=== PATIENT | male | born 1965 | race Caucasian/White ===

== ENCOUNTER → 2017-08-27 | Outpatient (CLI) | payer OTHER ==
[2017-08-27 09:02] LABS: ALT 62 U/L (21-72); AST 47 U/L (17-59); Albumin 4.2 g/dL (3.5-5.0); Alkaline Phosphatase 83 U/L (38-126); Anion Gap 9 mmol/L; Blood Urea Nitrogen 19 mg/dL (9-20); Calcium 10.1 mg/dL (8.4-10.2); Carbon Dioxide 25 mmol/L (22-30); Chloride 110 mmol/L (98-107); Cholesterol 176 mg/dL (<200); Glucose 76 mg/dL (74-99); HDL Cholesterol 31 mg/dL (40-60); LDL Cholesterol,Calculated 107 mg/dL (0-99); Potassium 4.7 mmol/L (3.5-5.1); Sodium 144 mmol/L (137-145); Total Bilirubin 0.4 mg/dL (0.2-1.3); Total Protein 6.8 g/dL (6.3-8.2); Triglycerides 192 mg/dL (<150)
[2017-08-27 18:49] LABS: Hemoglobin A1C 8.6 % (4.0-6.0)
== END | disposition home or self-care (01) ==
LOC: LABWHC1 08:16
PROVIDERS: ATTEND Internal Medicine Endocrinology, Diabetes & Metabolism
DX: E11.65 Type 2 diabetes mellitus with hyperglycemia (principal)
CPT/HCPCS: 36415; 80053; 80061; 82043; 82570; 83036

== ENCOUNTER → 2018-02-14 | Outpatient (CLI) | payer BC ==
[2018-02-14 09:03] LABS: HCT 50.3 % (39.0-53.0); HGB 16.2 gm/dL (13.0-17.5); MCH 27.6 pg (25.0-35.0); MCHC 32.1 g/dL (31.0-37.0); MCV 85.9 fL (80.0-100.0); Mean Platelet Volume 7.6; Platelet Count 260 k/uL (150-450); RBC 5.86 m/uL (4.30-5.90); RDW 15.1 % (11.5-15.5)
[2018-02-14 09:21] LABS: Anion Gap 9 mmol/L; Blood Urea Nitrogen 12 mg/dL (9-20); Carbon Dioxide 25 mmol/L (22-30); Chloride 105 mmol/L (98-107); Potassium 4.5 mmol/L (3.5-5.1); Sodium 139 mmol/L (137-145)
== END | disposition home or self-care (01) ==
LOC: LABPAT 07:48
PROVIDERS: ATTEND Internal Medicine Interventional Cardiology
DX: Z01.812 Encounter for preprocedural laboratory examination (principal); I70.213 Atherosclerosis of native arteries of extremities with intermittent claudication, bilateral legs; E78.1 Pure hyperglyceridemia
CPT/HCPCS: 36415; 80051; 82565; 84520; 85027

== ENCOUNTER 2018-02-28 09:48 | Day surgery (SDC) | payer BC, OTHER ==
[2018-02-26 11:57] VITALS: BMI 45.3
[~2018-02-28 09:48] MED LIST: ALPRAZolam 0.25 MG TAB PO PRN; ASPIRIN 325 MG TAB PO STA; SODIUM CHLORIDE 0.9% 1,000 ML in EMPTY BAG 1 BAG IV ONE
[2018-02-28 10:23] LABS: Glucose,Whole Blood 201 mg/dL (75-99)
[2018-02-28] MEDS ORDERED: INSULIN ASPART 100 UNIT/ML 1 ML 10 ML VIAL SQ ONE (10:34)
[2018-02-28] MEDS ORDERED: MIDAZOLAM 2 MG/2 ML VIAL IV ONE (14:09)
[2018-02-28] MEDS ORDERED: SODIUM CHLORIDE 0.9% 1,000 ML IV ONE (14:10)
[2018-02-28] MEDS ORDERED: LIDOCAINE 1% INJ 10MG/ML (20 ML MDV) SQ ONE (14:15)
[2018-02-28] MEDS ORDERED: SODIUM CHLORIDE 0.9% 1,000 ML IV SCH (14:45)
[2018-02-28 15:19] VITALS: RESP 18; TEMP 97.6
[2018-02-28 16:23] LABS: Glucose,Whole Blood 202 mg/dL (75-99)
[2018-02-28 18:03] VITALS: BP 175/77; PULSE 104
--- NOTE | 2018-02-28 18:54 | AN ---
ANGIOGRAPHY REPORT DATE OF SERVICE: 02/28/2018 PERFORMING PHYSICIAN: Ruslan Ferguson MD, confectionery maker. PROCEDURE PERFORMED: 1. Abdominal aortogram. 2. Bilateral lower extremity runoff. INDICATION: This is a pleasant 52-year-old gentleman with known history of peripheral arterial disease who underwent in the past successful stenting of the left common iliac artery and left external iliac artery. He was experiencing bilateral lower extremity intermittent claudication. He was brought today to undergo a peripheral angiogram. APPROACH: Right common femoral artery. COMPLICATIONS: None. LEVEL OF SEDATION: Moderate, with sedation length of 17 minutes. PROCEDURE DESCRIPTION: After obtaining informed consent, the patient was brought to the cardiac labor relations director. The right common femoral artery was cannulated using micropuncture technique. The micropuncture wire passed easily. Then I placed a 4-Kazakh sheath in the right common femoral artery. After that I did an abdominal aortogram and bilateral lower extremity runoff using 4-Kazakh pigtail catheter which was initially placed at the level of the renal arteries. Then it was pulled into above the bifurcation of the aorta to right and left common iliac arteries. The procedure was completed without any complication. SELECTIVE PERIPHERAL ANGIOGRAM: 1. The aorta appeared to be normal. 2. Common iliac arteries. The right and left common iliac arteries appeared to be patent. 3. External iliac arteries. The right and left external are patent. 4. The internal iliac arteries. The right internal iliac artery is patent and the left internal iliac artery was not well opacified. 5. Common femoral arteries. The right and left common femoral arteries are normal. 6. Profundae. The right and left profundae are patent. 7. SFA. The right and left SFAs are patent. 8. Popliteals. The right and left popliteals are normal. 9. Below the knee. There is 3-vessel runoff below the knee bilaterally which reach all the way to the feet. CONCLUSION: Patent stent in the left common iliac artery and left external iliac artery. POST-PROCEDURE MANAGEMENT: Medical treatment. MMODL / IJN: [id number] /
--- NOTE | 2018-02-28 18:54 | LTR ---
February 28, 2018 To: Dr. Radha Nagel Re: Ramos Andersen ([id number]) Dear Dr. Nagel, Mr. Ramos Andersen underwent today peripheral angiogram and that revealed patent stent in the left common iliac artery and left external iliac artery. Thank you for allowing us to participate in his care. Please do not hesitate to call if you have any question or concern. Sincerely, Ruslan Ferguson MD MMAMANDAL / TYRONEN: [id number] /
--- NOTE | 2018-03-01 09:53 | IR ---
Fluoroscopy HISTORY: Peripheral vascular disease 3.2 minutes fluoroscopy time supplied to the referring clinician. 131 intraoperative C-arm images do cument the procedure. See dictated report from cardiology.
== END 2018-02-28 19:56 | disposition home or self-care (01) ==
LOC: CATHCVL 09:48 → 1SOBS 14:44 → CATHCVL 19:56
PROVIDERS: ATTEND Internal Medicine Interventional Cardiology
DX: I70.213 Atherosclerosis of native arteries of extremities with intermittent claudication, bilateral legs (principal); E11.51 Type 2 diabetes mellitus with diabetic peripheral angiopathy without gangrene; Z95.820 Peripheral vascular angioplasty status with implants and grafts; E78.5 Hyperlipidemia, unspecified; E78.1 Pure hyperglyceridemia; E66.01 Morbid (severe) obesity due to excess calories; Z68.42 Body mass index [BMI] 45.0-49.9, adult; I25.10 Atherosclerotic heart disease of native coronary artery without angina pectoris; Z79.02 Long term (current) use of antithrombotics/antiplatelets; Z79.82 Long term (current) use of aspirin; Z79.4 Long term (current) use of insulin; Z79.899 Other long term (current) drug therapy; Z87.891 Personal history of nicotine dependence
CPT/HCPCS: 36200; 75625; 75716; C1769 ×4; C1894; J2250; J2001

== ENCOUNTER → 2018-04-16 | Outpatient (CLI) | payer BC ==
[2018-04-16 18:03] LABS: Albumin 4.2 g/dL (3.80-4.90); Albumin/Globulin Ratio 1.68 (1.60-3.17); Anion Gap 9.8 mmol/L (4.00-12.00); Calcium 9.2 mg/dL (8.7-10.3); Carbon Dioxide 23.2 mmol/L (21.6-31.8); Globulin 2.5 g/dL (1.6-3.3); LDL Cholesterol,Calculated 59.4 mg/dL (0.0-131.0); Potassium 4.6 mmol/L (3.5-5.5); Total Bilirubin 0.6 mg/dL (0.3-1.2); Total Protein 6.7 g/dL (6.2-8.2); VLDL Calculation 31.6 mg/dL (5.00-40.00)
[2018-04-16 20:26] LABS: Hemoglobin A1C 11.7 % (4.0-6.0)
== END ==
LOC: LABWHC1 08:14
PROVIDERS: ATTEND Internal Medicine Endocrinology, Diabetes & Metabolism
DX: E11.65 Type 2 diabetes mellitus with hyperglycemia (principal)
CPT/HCPCS: 36415; 80053; 80061; 82043; 82570; 83036; 84443

== ENCOUNTER → 2018-12-24 | Outpatient (CLI) | payer BC ==
--- NOTE | 2018-12-24 10:16 | US ---
EXAMINATION TYPE: US venous doppler duplex LE DATE OF EXAM: 12/24/2018 9:11 AM COMPARISON: NONE CLINICAL HISTORY: E11.622 Type 2 diabetes mellitus with other skin. Non-healing wounds bilateral lowe r legs LOWER EXTREMITY VENOUS INSUFFICIENCY SIDE PERFORMED: Bilateral 1) Color flow is present and patency is documented in the following vessels. No DVT or SVT is noted . EIV Common Femoral Vein Deep Femoral Vein Femoral Vein Popliteal Vein Proximal Calf Veins Greater Saph Vein Upper Small Saph Vein 2) There is venous reflux noted at the following venous levels: Right: CFV, Mid fem vein, distal fem vein, proximal and distal popliteal vein, and small saph vein Left: CFV, proximal fem vein, mid fem vein IMPRESSION: 1. No sonographic evidence of deep venous thrombosis nor superficial venous thrombosis within either the bilateral lower chimney. 2. Venous reflux is noted at the above detailed levels bilaterally.
--- NOTE | 2018-12-25 13:58 | P.ARTDOP ---
Arterial Doppler LOWER EXTREMITY ARTERIAL DOPPLER: DATE OF SERVICE: 12/24/2018 Reason for study: Bilateral leg ulcers. Doppler waveforms: Multiphasic bilaterally throughout. Pulse volume recording: None. Pressure gradients: None. Ankle-brachial indices: Greater than 1 bilaterally. Toe pressures: 99 on the right, 98 on the left Impression: Normal study.
== END | disposition home or self-care (01) ==
LOC: RADUSWWP 08:32
PROVIDERS: ATTEND Family Medicine
DX: R60.0 Localized edema (principal); I87.2 Venous insufficiency (chronic) (peripheral); I73.89 Other specified peripheral vascular diseases; E11.622 Type 2 diabetes mellitus with other skin ulcer; E11.65 Type 2 diabetes mellitus with hyperglycemia; Z95.820 Peripheral vascular angioplasty status with implants and grafts
CPT/HCPCS: 93922; 93970

== ENCOUNTER → 2019-10-31 | Outpatient (CLI) | payer BC ==
[2019-10-31 16:18] LABS: Hemoglobin A1C 9.4 % (4.0-6.0)
[2019-10-31 16:34] LABS: African American GFR (CKD) 118.2 (60.0-200.0); Albumin 4.3 g/dL (3.80-4.90); Albumin/Globulin Ratio 2.39 (1.60-3.17); Anion Gap 9.6 mmol/L (4.00-12.00); BUN/Creat Ratio 17.5 Ratio (12.00-20.00); Carbon Dioxide 23.4 mmol/L (21.6-31.8); Chol/HDL Ratio 5.68; Globulin 1.8 g/dL (1.6-3.3); LDL Cholesterol,Calculated 113.8 mg/dL (0.0-131.0); Potassium 3.8 mmol/L (3.5-5.5); Total Bilirubin 0.5 mg/dL (0.2-1.2); Total Protein 6.1 g/dL (6.2-8.2); VLDL Calculation 31.2 mg/dL (5.00-40.00)
[2019-10-31 17:56] LABS: Urine Creatinine 130.2 mg/dL
== END | disposition home or self-care (01) ==
LOC: LABWHC1 08:47
PROVIDERS: ATTEND Internal Medicine Endocrinology, Diabetes & Metabolism
DX: E11.65 Type 2 diabetes mellitus with hyperglycemia (principal)
CPT/HCPCS: 36415; 80053; 80061; 82043; 82570; 83036; 84443

== ENCOUNTER → 2020-04-20 | Outpatient (CLI) | payer BC ==
--- NOTE | 2020-04-20 09:55 | XR ---
EXAM TYPE: LUMBAR SPINE X RAY SERIES COMPARISON: NONE HISTORY: Pain TECHNIQUE: 4 views are submitted. FINDINGS: Alignment is anatomic. The pedicles are intact. The transverse processes are intact. There is no s pondylolysis or spondylolisthesis. Hypertrophic and degenerative change spine. The SI joints facet ar thropathy at all levels. Grade 1 anterolisthesis L5 on S1. Cannot exclude a spondylolysis at this lev el. Multilevel severe degenerative disc disease at levels L3-S1. Posterior spurring at numerous level s. IMPRESSION: 1. Multilevel severe degenerative disc disease, facet arthropathy and suspected foraminal encroachmen t. Consider MRI follow-up. 2. Grade 1 anterolisthesis L5 on S1.
--- NOTE | 2020-04-20 09:56 | XR ---
EXAMINATION TYPE: XR thoracic spine 2V DATE OF EXAM: 04/20/2020 COMPARISON: NONE HISTORY: Pain TECHNIQUE: 3 views submitted FINDINGS: Alignment is anatomic. There is no compression deformities. Multilevel severe degenerative disc dise ase and hypertrophic spurring. Incidental note made of anterolisthesis of C3 relative to C4 on the sw immer's view. IMPRESSION: 1. Multilevel severe hypertrophic and degenerative disc disease.
--- NOTE | 2020-04-20 09:58 | XR ---
EXAMINATION TYPE: XR cervical spine comp DATE OF EXAM: 04/20/2020 COMPARISON: NONE HISTORY: Pain TECHNIQUE: Four views are submitted. FINDINGS: The odontoid is intact. There are no compression deformities. The prevertebral soft tissue structur es are within normal limits. Calcification soft tissue the right neck likely related carotid artery calcification. There is a anterolisthesis of C3 on C4. There is multilevel facet arthropathy and dege nerative disc disease with hypertrophic spurring anteriorly. Odontoid intact. IMPRESSION: 1. Multilevel hypertrophic and degenerative change with grade 1 anterolisthesis C3 on C4. Multilevel foraminal encroachment suspected.
== END ==
LOC: RADXRMAIN 09:07
PROVIDERS: ATTEND Physician Assistant
DX: M51.36 Other intervertebral disc degeneration, lumbar region (principal); M51.34 Other intervertebral disc degeneration, thoracic region; M47.812 Spondylosis without myelopathy or radiculopathy, cervical region
CPT/HCPCS: 72050; 72070; 72110

== ENCOUNTER → 2020-04-23 | Outpatient (CLI) | payer BC | END | disposition home or self-care (01) | LOC: RADMRIMAIN 19:23 | PROVIDERS: ATTEND Internal Medicine | DX: Z53.9 Procedure and treatment not carried out, unspecified reason (principal) ==

== ENCOUNTER → 2021-07-26 | Outpatient (CLI) | payer BC ==
[2021-07-26 14:56] LABS: ALT 21 U/L (10-49); AST 25 U/L (14-35); Chol/HDL Ratio 5.41 Ratio
== END | disposition home or self-care (01) ==
LOC: LABWHC1 07:51
PROVIDERS: ATTEND Internal Medicine Interventional Cardiology
DX: E78.2 Mixed hyperlipidemia (principal)
CPT/HCPCS: 36415; 80061; 84450; 84460

== ENCOUNTER → 2022-10-02 | Outpatient (CLI) | payer BC | END | disposition home or self-care (01) | LOC: LABWHC1 07:36 | PROVIDERS: ATTEND Family Medicine | DX: E11.65 Type 2 diabetes mellitus with hyperglycemia (principal) | CPT/HCPCS: 36415; 83036 ==